=== PATIENT | female | born 1960 | race Caucasian/White ===

== ENCOUNTER 2021-10-08 09:12 | Emergency (ER) | payer OTHER ==
[~2021-10-08] VITALS: Ht 152.4 cm; Wt 67.7 kg
[2021-10-08 09:17] VITALS: BP 127/66
--- NOTE | 2021-10-08 09:21 | NUR ---
PT AMB TO BED 11
--- NOTE | 2021-10-08 09:25 | NUR ---
PATIENT PRESENTS TO ED WITH TOOTH PAIN. PT STATES FOR THE PAST 3 DAYS PT HAS HAD TOOTH PAIN IN THE TOP, RIGT, LAST TOOTH; SLIGHT DISCOLORATION OF THE TOOTH; RADIATES UP TO HEAD CAUSING HEADACHES AND DOWN INTO HER NECK. DENIES N/V/D; SKIN IS PINK/WARM/DRY; AAOX4 WITH EVEN AND STEADY GAIT; LUNGS CLEAR BL; PT DENIES ANY FEVER, CP, SOB, OR COUGH AT THIS TIME; PATIENT STATES PAIN OF 10/10 AT THIS TIME; VSS; PATIENT POSITIONED FOR COMFORT IN CHAIR NEXT TO THE BED. ER MD MADE AWARE OF PT STATUS. HX: DENIES NKDA MEDS: IBUPROFEN @0500 FOR PAIN
--- NOTE | 2021-10-08 09:30 | NUR ---
ER AT BEDSIDE
--- NOTE | 2021-10-08 09:30 | NUR ---
dr. blankenship bedside evaluating pt
[2021-10-08] MEDS ORDERED: MORPHINE SULFATE 4 MG/ML SYR IM ONE (09:35)
[2021-10-08] MEDS ORDERED: ACET-8386 PO (09:38)
[2021-10-08 09:58] VITALS: BP 110/64
--- NOTE | 2021-10-08 09:58 | NUR ---
Patient discharged with v/s stable. Written and verbal after care instructions given and explained. Patient alert, oriented and verbalized understanding of instructions. Ambulatory with steady gait. All questions addressed prior to discharge. ID band removed. Patient advised to follow up with PMD. Rx of HYDROCODONE/ACETAMINOPHEN given. Patient educated on indication of medication including possible reaction and side effects. Opportunity to ask questions provided and answered. pATIENT HAS CALM DEMEANOR, UNLABORED BREATHING, AND STEADY GAIT.
== END 2021-10-08 09:58 | disposition home or self-care (01) ==
LOC: MED 09:12
DX: K08.89 Other specified disorders of teeth and supporting structures (principal)
CPT/HCPCS: 96372; 99283; J2270

== ENCOUNTER 2021-12-22 11:12 | Emergency (ER) | payer OTHER ==
[~2021-12-22] VITALS: Ht 137.2 cm; Wt 72.6 kg
[~2021-12-22 11:12] MED LIST: ACET-8386 PO
[2021-12-22 11:22] VITALS: BP 135/63
--- NOTE | 2021-12-22 11:39 | NUR ---
TO ER BED 6
[2021-12-22] MEDS ORDERED: KETOROLAC 30 MG/ML VIAL IM ONE (12:05)
--- NOTE | 2021-12-22 12:05 | NUR ---
61 Y/O FEMALE C/O RIGHT HEAD PAIN 5/10, RIGHT EYE PAIN, RIGHT FACE PAIN, RIGHT NECK PAIN, WEAKNESS X1DAY. DENIES FEVER/CHILLS. DENIES N/V. PT STATES [employer] COVID TESTED + 1 WEEK AGO. DENIES PMH NKA
--- NOTE | 2021-12-22 12:13 | NUR ---
COLLECTED JAIDEN TEE, WALKED TO LAB.
[2021-12-22] MEDS ORDERED: CYC1OS LEFT EYE (12:23)
[2021-12-22] MEDS ORDERED: PREOS OP (12:23)
[2021-12-22] MEDS ORDERED: IBUP-2213 PO (12:52)
[2021-12-22 12:59] VITALS: BP 129/72
--- NOTE | 2021-12-22 12:59 | NUR ---
Patient discharged with v/s stable. Written and verbal after care instructions given FOR GENERAL HEADACHE WITHOUT A CAUSE and explained. Patient alert, oriented and verbalized understanding of instructions. Ambulatory with steady gait. All questions addressed prior to discharge. ID band removed. Patient advised to follow up with PMD. Rx of IBUPROFEN given. Patient educated on indication of medication including possible reaction and side effects. Opportunity to ask questions provided and answered.
== END 2021-12-22 12:59 | disposition home or self-care (01) ==
LOC: MED 11:12
DX: B34.9 Viral infection, unspecified (principal); Z20.822 Contact with and (suspected) exposure to COVID-19; Z79.899 Other long term (current) drug therapy
CPT/HCPCS: 81002; 96372; 99283; J1885; U0003

== ENCOUNTER 2023-09-11 08:28 | Emergency (ER) | payer OTHER ==
[~2023-09-11] VITALS: Ht 152.4 cm; Wt 69.4 kg
[~2023-09-11 08:28] MED LIST changes: -ACET-8386 PO; +IBUP-2213 PO
[2023-09-11 08:48] VITALS: BP 133/74; PULSE 60; RESP 18; TEMP 97.6; O2SAT 100
[2023-09-11 09:40] LABS: FLU A ANTIGEN negative (NEGATIVE); FLU B ANTIGEN negative (NEGATIVE)
[2023-09-11] MEDS ORDERED: ACETAMINOPHEN EXTRA STRENGTH 500 MG TAB PO ONE (09:45)
[2023-09-11] MEDS ORDERED: IBUPROFEN 600 MG TAB PO ONE (09:45)
[2023-09-11 10:51] LABS: APPEARANCE,URINE CLEAR (CLEAR); BILIRUBIN,URINE NEGATIVE (NEGATIVE); BLOOD, URINE TRACE-I (NEGATIVE); COLOR,URINE YELLOW (YELLOW); LEUKOCYTE ESTERASE ,URINE 1+ (NEGATIVE); NITRITE, URINE NEGATIVE (NEGATIVE); PROTEIN,URINE NEGATIVE (NEGATIVE); UGLUCOSE NEGATIVE (NEGATIVE); UROBILINOGEN,URINE 0.2 EU/dL (0.2 - 1)
[2023-09-11 10:55] LABS: RBC,URINE 0-5 /HPF (0-5); WBC,URINE 0-5 /HPF (0-5)
[2023-09-11 10:56] LABS: BACTERIA,URINE 0-2 /HPF (None Seen)
[2023-09-11 10:57] LABS: MUCUS,URINE None Seen /LPF (None Seen); SQUAMOUS EPITHELIAL CELL,UR 0-3 (FEW) /LPF (0-3 (FEW))
[2023-09-11] MEDS ORDERED: ACET-10509 PO (11:11)
[2023-09-11 11:29] VITALS: BP 129/65; PULSE 60; RESP 18; TEMP 97.6; O2SAT 100
== END 2023-09-11 11:30 | disposition home or self-care (01) ==
LOC: MED 08:28
DX: M79.10 Myalgia, unspecified site (principal); Z20.822 Contact with and (suspected) exposure to COVID-19; Z79.899 Other long term (current) drug therapy
CPT/HCPCS: 81001; 87086; 99283

== ENCOUNTER 2024-01-01 13:47 | Emergency (ER) | payer OTHER ==
[~2024-01-01] VITALS: Ht 165.1 cm; Wt 81.6 kg
[~2024-01-01 13:47] MED LIST changes: +ACET-10509 PO
[2024-01-01 14:11] VITALS: BP 128/68; PULSE 80; RESP 18; TEMP 97.7; O2SAT 97
[2024-01-01] MEDS: KETOROLAC 30 MG/ML VIAL IM ONE (15:07)
[2024-01-01] MEDS ORDERED: IBUP-2213 PO (15:27)
[2024-01-01] MEDS ORDERED: ACET-10509 PO (15:27)
== END 2024-01-01 15:47 | disposition home or self-care (01) ==
LOC: MED 13:47
DX: S93.602A Unspecified sprain of left foot, initial encounter (principal); Z79.899 Other long term (current) drug therapy; W01.0XXA Fall on same level from slipping, tripping and stumbling without subsequent striking against object, initial encounter; Y92.89 Other specified places as the place of occurrence of the external cause; Y93.89 Activity, other specified; Y99.8 Other external cause status
CPT/HCPCS: 73610; 73630; 96372; 99284; J1885

== ENCOUNTER 2024-02-15 06:45 | Day surgery (SDC) | payer OTHER ==
[~2024-02-15] VITALS: Ht 157.5 cm; Wt 65.8 kg
[2024-02-15] MEDS ORDERED: fentaNYL citrate 0.05 MG/ML VIAL ONE (07:20)
[2024-02-15] MEDS: fentaNYL citrate 0.05 MG/ML VIAL IVP ONE (08:23)
[2024-02-15] MEDS: LIDOCAINE 2% 100 MG/5 ML UJET TP ONE (08:30)
== END 2024-02-15 09:20 | disposition home or self-care (01) ==
LOC: MOR 06:45 → MMU 06:48 → MOR 09:20
PROVIDERS: ATTEND Internal Medicine Gastroenterology
DX: Z12.11 Encounter for screening for malignant neoplasm of colon (principal); D64.9 Anemia, unspecified; Z85.42 Personal history of malignant neoplasm of other parts of uterus; Z98.890 Other specified postprocedural states
CPT/HCPCS: 45378; J3010

== ENCOUNTER 2024-02-27 19:47 | Emergency (ER) | payer OTHER ==
[~2024-02-27] VITALS: Ht 157.5 cm; Wt 68.0 kg
[2024-02-27 20:50] VITALS: BP 111/59; PULSE 66; RESP 18; TEMP 98; O2SAT 98
[2024-02-27 21:36] LABS: APPEARANCE,URINE CLEAR (CLEAR); BILIRUBIN,URINE NEGATIVE (NEGATIVE); BLOOD, URINE 1+ (NEGATIVE); COLOR,URINE YELLOW (YELLOW); LEUKOCYTE ESTERASE ,URINE NEGATIVE (NEGATIVE); NITRITE, URINE NEGATIVE (NEGATIVE); PROTEIN,URINE NEGATIVE (NEGATIVE); UGLUCOSE NEGATIVE (NEGATIVE); UROBILINOGEN,URINE 0.2 EU/dL (0.2 - 1)
[2024-02-27 21:43] LABS: BACTERIA,URINE FEW /HPF (None Seen); RBC,URINE 0-5 /HPF (0-5); SQUAMOUS EPITHELIAL CELL,UR 0-3 (FEW) /LPF (0-3 (FEW)); WBC,URINE 0-5 /HPF (0-5)
[2024-02-27] MEDS ORDERED: PYR100 PO (22:03)
[2024-02-27] MEDS ORDERED: CEPH-588 PO (22:03)
[2024-02-27 22:08] VITALS: BP 111/59; PULSE 66; RESP 18; TEMP 98
[2024-02-27 22:09] VITALS: O2SAT 98
== END 2024-02-27 22:08 | disposition home or self-care (01) ==
LOC: MED 19:47
DX: N39.0 Urinary tract infection, site not specified (principal); Z79.899 Other long term (current) drug therapy
CPT/HCPCS: 81001; 99283